=== PATIENT | female | born 1975 | race African-American/Black ===

== ENCOUNTER 2017-01-24 11:11 | Inpatient (IN) | payer OTHER ==
[2017-01-24 13:09] VITALS: BMI 24.2
--- NOTE | 2017-01-24 14:08 | HP ---
CIWA Score - CIWA Score Nausea/Vomitin Muscle Tremors: 3 Anxiety: 3 Agitation: 4-Moderately Restless Paroxysmal Sweats: 3 Orientation: 0-Oriented Tacttile Disturbances: 0-None Auditory Disturbances: 0-None Visual Disturbances: 0-None Headache: 1-Very Mild CIWA-Ar Total Score: 17 Admission ROS BHS - HPI Chief Complaint: I need to be here to get clean. Allergies/Adverse Reactions: Allergies Allergy/AdvReac Type Severity Reaction Status Date / Time No Known Allergies Allergy Verified 01/24/17 13:38 History of Present Illness: pt is a 41yr old female with a history of alcohol and cocaine dependence seeking detox for treatment Exam Limitations: No Limitations - Ebola screening Have you traveled outside of the country in the last 21 days: No Have you had contact with anyone from an Ebola affected area: No Have you been sick,other than usual withdrawal symptoms: No Do you have a fever: No - Review of Systems Constitutional: Chills, Changes in sleep EENT: reports: No Symptoms Reported Respiratory: reports: No Symptoms reported Cardiac: reports: No Symptoms Reported GI: reports: Nausea, Poor Appetite, Poor Fluid Intake, Vomiting : reports: No Symptoms Reported Musculoskeletal: reports: Joint Pain Integumentary: reports: Flushing, Sweating Neuro: reports: Headache, Tingling, Tremors Endocrine: reports: Excessive Sweating, Flushing, Intolerance to Cold, Intolerance to Heat Hematology: reports: No Symptoms Reported Psychiatric: reports: Judgement Intact, Orientated x3, Agitated, Anxious Patient History - Patient Medical History Hx Anemia: No Hx Asthma: Yes Hx Chronic Obstructive Pulmonary Disease (COPD): No Hx Cancer: No Hx Cardiac Disorders: No Hx Congestive Heart Failure: No Hx Hypertension: No Hx Hypercholesterolemia: No Hx Pacemaker: No HX Cerebrovascular Accident: No Hx Seizures: No Hx Diabetes: No Hx Gastrointestinal Disorders: No Hx Liver Disease: No Hx Genitourinary Disorders: No Hx Sexually Transmitted Disorders: No Hx Renal Disease (ESRD): No Hx Thyroid Disease: No Hx Human Immunodeficiency Virus (HIV): No (negative) Hx Hepatitis C: No Hx Depression: Yes Hx Suicide Attempt: No Hx Bipolar Disorder: Yes Hx Schizophrenia: No - Patient Surgical History Past Surgical History: Yes Hx Neurologic Surgery: No Hx Cataract Extraction: No Hx Cardiac Surgery: No Hx Lung Surgery: No Hx Breast Surgery: No Hx Breast Biopsy: No Hx Abdominal Surgery: No Hx Appendectomy: No Hx Cholecystectomy: No Hx Genitourinary Surgery: No Hx Section: Yes Hx Orthopedic Surgery: Yes (fx, foot) Anesthesia Reaction: No - PPD History Previous Implant?: Yes Documented Results: Negative w/o proof Implanted On Prior [facility] Admission?: No PPD to be Administered?: Yes - Reproductive History Last Menstrual Period: 01/24/17 Patient : No - Smoking Cessation Smoking history: Current every day smoker Have you smoked in the past 12 months: Yes Aproximately how many cigarettes per day: 4 Hx Chewing Tobacco Use: No Initiated information on smoking cessation: Yes 'Breaking Loose' booklet given: 01/24/17 - Substance & Tx. History Hx Alcohol Use: Yes Hx Substance Use: Yes Substance Use Type: Alcohol, Cocaine Hx Substance Use Treatment: Yes - Substances Abused Cocaine Route: Inhalation Frequency: Daily Amount used: $100 Age of first use: 38 Date of Last Use: 01/24/17 Alcohol-beer Route: Oral Frequency: Daily Amount used: 1-6 pk. Age of first use: 13 Date of Last Use: 01/24/17 Family Disease History - Family Disease History Family History: Denies Admission Physical Exam S - Vital Signs Vital Signs: Vital Signs - 24 hr 01/24/17 13:05 Temperature 97.4 F L Pulse Rate 76 Respiratory 18 Rate Blood Pressure 119/68 - Physical General Appearance: Yes: Appropriately Dressed, Tremorous, Irritable, Sweating, Anxious HEENTM: Yes: Normal Voice Respiratory: Yes: Lungs Clear, Normal Breath Sounds, No Respiratory Distress Neck: Yes: No masses,lesions,Nodules Breast: Yes: Within Normal Limits Cardiology: Yes: Regular Rhythm, Regular Rate, S1, S2 Abdominal: Yes: Normal Bowel Sounds, Non Tender, Soft Genitourinary: Yes: Within Normal Limits Back: Yes: Normal Inspection Musculoskeletal: Yes: full range of Motion Extremities: Yes: Normal Capillary Refill, Normal Inspection, Tremors Neurological: Yes: Fully Oriented, Alert, Normal Response Integumentary: Yes: Normal Color Lymphatic: Yes: Within Normal Limits - Diagnostic (1) Alcohol dependence with uncomplicated withdrawal Current Visit: Yes Status: Chronic (2) Cocaine dependence, uncomplicated Current Visit: Yes Status: Chronic (3) Nicotine dependence Current Visit: Yes Status: Chronic Qualifiers: Nicotine product type: cigarettes Substance use status: uncomplicated Qualified Code(s): F17.210 - Nicotine dependence, cigarettes, uncomplicated (4) Asthma Current Visit: Yes Status: Acute Cleared for Admission [facility] - Detox or Rehab [facility] Level of Care: Medically Managed Detox Regimen/Protocol: Librium S Breath Alcohol Content Breath Alcohol Content: 0 Urine Pregancy Test - Result Urine Test Results: Negative- NO Line Present Urine Drug Screen - Results Drug Screen Negative: No Urine Drug Screen Results: JOY-Cocaine
[2017-01-24] MEDS ORDERED: NICOTINE POLACRILEX 4 MG GUM BC PRN (14:10)
[2017-01-24] MEDS ORDERED: guaiFENesin/D-METHORPHAN HB 10 ML UNIT-DOSE CUPS PO PRN (14:10)
[2017-01-24] MEDS ORDERED: P-EPHED 60MG/TRIPROLIDI 2.5MG TABLET PO PRN (14:10)
[2017-01-24] MEDS ORDERED: diphenhydrAMINE HCL 50 MG CAPSULE PO PRN (14:10)
[2017-01-24] MEDS ORDERED: MAG HYDROX/AL HYDROX/SIMETH 30 ML UNIT-DOSE CUP PO PRN (14:10)
[2017-01-24] MEDS ORDERED: chlordiazePOXIDE HCL 25 MG CAPSULE PO PRN (14:10)
[2017-01-24] MEDS ORDERED: MENTHOL/PHENOL 1 EACH UD MM PRN (14:10)
[2017-01-24] MEDS ORDERED: ACETAMINOPHEN 325 MG TABLET (FP) PO PRN (14:10)
[2017-01-24] MEDS ORDERED: MAGNESIUM CITRATE 300 ML BOTTLE PO PRN (14:10)
[2017-01-24] MEDS ORDERED: MAGNESIUM HYDROX 2400MG/30ML ORAL SUSPENSION 30 ML CUP PO PRN (14:10)
[2017-01-24] MEDS ORDERED: LOPERAMIDE HCL 2 MG CAPSULE PO PRN (14:10)
[2017-01-24] MEDS ORDERED: hydrOXYzine PAMOATE 50 MG CAPSULE (FP) PO PRN (14:10)
[2017-01-24] MEDS ORDERED: ALBUTEROL SO4 6.7 GM HFA INHALER IH PRN (14:12)
[2017-01-24] MEDS ORDERED: chlordiazePOXIDE HCL 25 MG CAPSULE PO ONE (15:40)
[2017-01-24] MEDS: IBUPROFEN 400 MG TABLET (FP) PO PRN (17:52)
[2017-01-24] MEDS: chlordiazePOXIDE HCL 25 MG CAPSULE PO SCH ×2 (17:53→22:11)
[2017-01-24 18:35] LABS: URINE APPEARANCE CLEAR; URINE BILIRUBIN NEGATIVE (NEGATIVE); URINE COLOR LTYELLOW; URINE GLUCOSE (UA) NEGATIVE (NEGATIVE); URINE KETONE NEGATIVE (NEGATIVE); URINE LEUK ESTERASE NEGATIVE (NEGATIVE); URINE NITRITE NEGATIVE (NEGATIVE); URINE PROTEIN NEGATIVE (NEGATIVE); URINE UROBILINOGEN NEGATIVE E.U./dl (0.2-1.0)
[2017-01-24 18:39] LABS: URINE BLOOD 1+ (NEGATIVE)
[2017-01-24 18:41] LABS: URINE BACTERIA RARE /hpf (NONE SEEN); URINE MUCUS RARE; URINE RBC <1 /hpf (0-3); URINE WBC 6 /hpf (3-5)
[2017-01-24] MEDS: THIAMINE HCL 100 MG TABLET (FP) PO SCH (22:11)
[2017-01-25] MEDS: chlordiazePOXIDE HCL 25 MG CAPSULE PO SCH ×4 (06:09→22:32)
--- NOTE | 2017-01-25 08:32 | CONSULT ---
[facility] Psychiatric Consult - Data Date of interview: 01/25/17 Admission source: [facility] Identifying data: This is 41 years old female with no psychiatric hospitalization history intoxicated with: :Alcohol, Cocaine and Nicotine Substance Abuse History: - Smoking Cessation. Smoking history: Current every day smoker. Have you smoked in the past 12 months: Yes. Aproximately how many cigarettes per day: 4. Hx Chewing Tobacco Use: No. Initiated information on smoking cessation: Yes. 'Breaking Loose' booklet given: 01/24/17. - Substance & Tx. History. Hx Alcohol Use: Yes. Hx Substance Use: Yes. Substance Use Type : Alcohol, Cocaine. Hx Substance Use Treatment: Yes. - Substances Abused. Cocaine. Route: Inhalation. Frequency: Daily. Amount used: $100. Age of first use: 38. Date of Last Use: 01/24/17. Alcohol-beer. Route: Oral. Frequency: Daily. Amount used: 1-6 pk. Age of first use: 13. Date of Last Use : 01/24/17 Medical History: Asthma Psychiatric History: Patient reprots history of anxiety and depression, ionsomnia, reports taking prior to admission: Seroquel 200mg po. Abilify 10mg poqd. Vistaril 50mg po qhs Physical/Sexual Abuse/Trauma History: Denies Additional Comment: Seroquel 200mg po. Abilify 10mg poqd. Vistaril 50mg po qhs Mental Status Exam - Mental Status Exam Alert and Oriented to: Person Cognitive Function: Fair Patient Appearance: Unkempt Mood: Sad Affect: Flat Patient Behavior: Sedated Speech Pattern: Delayed Voice Loudness: Mildly Soft/Quiet Thought Process: Circumstantial Thought Disorder: Being Controlled Hallucinations: Denies Suicidal Ideation: Denies Homicidal Ideation: Denies Insight/Judgement: Fair Sleep: Difficulty falling asleep Appetite: Weight gain Muscle strength/Tone: Normal Gait/Station: Normal Additional Comments: Seroquel 200mg po. Abilify 10mg poqd. Vistaril 50mg po qhs Psychiatric Findings - Problem List ([place] 1, 2,3) (1) Alcohol dependence with uncomplicated withdrawal Current Visit: Yes Status: Chronic (2) Cocaine dependence, uncomplicated Current Visit: Yes Status: Chronic (3) Nicotine dependence Current Visit: Yes Status: Chronic Qualifiers: Nicotine product type: cigarettes Substance use status: uncomplicated Qualified Code(s): F17.210 - Nicotine dependence, cigarettes, uncomplicated (4) Drug-induced mood disorder Current Visit: Yes Status: Acute - Initial Treatment Plan Initial Treatment Plan: Seroquel 200mg po. Abilify 10mg poqd. Vistaril 50mg po qhs
[2017-01-25 10:01] LABS: ALBUMIN 3.5 g/dl (3.4-5.0); ANION GAP 4 (8-16); CALCIUM 9.1 mg/dL (8.5-10.1); CO2 28 mmol/L (21-32); CREATININE 0.8 mg/dL (0.55-1.02); GLUCOSE,RANDOM 88 mg/dL (74-106); SGOT/AST 24 U/L (15-37); SGPT/ALT 48 U/L (12-78)
[2017-01-25 10:02] LABS: MCH 32.2 pg (25.7-33.7); MCHC 33.3 g/dl (32.0-36.0); MEAN CELL VOLUME 96.8 fl (80-96); MEAN PLT VOLUME 8.8 fl (7.5-11.1); PLATELET COUNT 299 K/MM3 (134-434); RDW 13.4 % (11.6-15.6); WHITE BLOOD COUNT 7.8 K/mm3 (4.0-10.0)
[2017-01-25 10:03] LABS: ALK PHOS 105 U/L (45-117); BILIRUBIN,TOTAL 0.3 mg/dL (0.2-1.0); TOT PROT 6.9 g/dl (6.4-8.2)
[2017-01-25 10:27] LABS: HIV 1 & 2 AB NEGATIVE; HIV 1 AGp24 NEGATIVE
--- NOTE | 2017-01-25 10:54 | PN ---
[facility] CIWA - CIWA Score Nausea/Vomitin-No Nausea/No Vomiting Muscle Tremors: 3 Anxiety: 3 Agitation: 3 Paroxysmal Sweats: 3 Orientation: 0-Oriented Tacttile Disturbances: 0-None Auditory Disturbances: 0-None Visual Disturbances: 0-None Headache: 0-None Present CIWA-Ar Total Score: 12 S Progress Note (SOAP) Subjective: back pain sweats interrupted sleep agitation Objective: 01/25/17 10:53 Vital Signs Temperature 97.7 F 01/25/17 09:47 Pulse Rate 92 H 01/25/17 09:47 Respiratory Rate 20 01/25/17 09:47 Blood Pressure 139/99 01/25/17 09:47 O2 Sat by Pulse Oximetry (%) Laboratory Tests 01/24/17 01/24/17 01/24/17 06:00 14:15 17:45 WBC RBC Hgb Hct MCV MCHC RDW Plt Count MPV Sodium Potassium Chloride Carbon Dioxide Anion Gap BUN Creatinine Creat Clearance w eGFR Random Glucose Calcium Total Bilirubin AST ALT Alkaline Phosphatase Total Protein Albumin Urine Color Ltyellow Urine Appearance Clear Urine pH 6.0 Ur Specific [place] 1.027 Urine Protein Negative Urine Glucose (UA) Negative Urine Ketones Negative Urine Blood 1+ H Urine Nitrite Negative Urine Bilirubin Negative Urine Urobilinogen Negative Ur Leukocyte Esterase Negative Urine RBC <1 Urine WBC 6 Ur Epithelial Cells Rare Urine Bacteria Rare Urine Mucus Rare Hepatitis C Antibody 0.1 HIV 1&2 Antibody Screen Negative HIV P24 Antigen Negative 01/25/17 01/25/17 06:00 06:00 WBC 7.8 RBC 3.72 Hgb 12.0 Hct 36.0 MCV 96.8 H MCHC 33.3 RDW 13.4 Plt Count 299 MPV 8.8 Sodium 139 Potassium 3.9 Chloride 107 Carbon Dioxide 28 Anion Gap 4 L BUN 17 Creatinine 0.8 Creat Clearance w eGFR > 60 Random Glucose 88 Calcium 9.1 Total Bilirubin 0.3 AST 24 ALT 48 Alkaline Phosphatase 105 Total Protein 6.9 Albumin 3.5 Urine Color Urine Appearance Urine pH Ur Specific [place] Urine Protein Urine Glucose (UA) Urine Ketones Urine Blood Urine Nitrite Urine Bilirubin Urine Urobilinogen Ur Leukocyte Esterase Urine RBC Urine WBC Ur Epithelial Cells Urine Bacteria Urine Mucus Hepatitis C Antibody HIV 1&2 Antibody Screen HIV P24 Antigen awake/alert lying in bed no acute distress Assessment: 01/25/17 10:53 withdrawal sx Plan: continue detox increase fluids lidocaine patch motrin/tylenol prn
[2017-01-25] MEDS: ARIPiprazole 10 MG TABLET PO SCH (10:55)
[2017-01-25] MEDS: PRENATAL VITAMINS W/ FOLIC ACID TABLET (FP) PO SCH (10:55)
[2017-01-25] MEDS: NICOTINE 21 MG/24 HOURS TOPICAL PATCH TD SCH (12:00)
[2017-01-25] MEDS: LIDOCAINE 5% TOPICAL PATCH TP SCH (12:00)
--- NOTE | 2017-01-25 15:27 | EKG ---
Test Reason : Blood Pressure : / mmHG Vent. Rate : 073 BPM Atrial Rate : 073 BPM P-R Int : 192 ms QRS Dur : 074 ms QT Int : 376 ms P-R-T Axes : 031 036 053 degrees QTc Int : 414 ms NORMAL SINUS RHYTHM NORMAL ECG NO PREVIOUS ECGS AVAILABLE Confirmed by MERLENE JACOBS MD ([id number]) on 01/25/2017 3:26:44 PM Referred By: Juan Alberto Gamble Confirmed By:MERLENE JACOBS MD
[2017-01-25] MEDS: THIAMINE HCL 100 MG TABLET (FP) PO SCH (22:32)
[2017-01-25] MEDS: QUEtiapine FUMARATE 200 MG TABLET PO SCH (22:32)
[2017-01-25] MEDS: hydrOXYzine PAMOATE 50 MG CAPSULE (FP) PO SCH (22:32)
[2017-01-26] MEDS: chlordiazePOXIDE HCL 25 MG CAPSULE PO SCH ×2 (05:34→10:28)
--- NOTE | 2017-01-26 09:28 | PN ---
[facility] CIWA - CIWA Score Nausea/Vomitin Muscle Tremors: 3 Anxiety: 3 Agitation: 2 Paroxysmal Sweats: 1-Minimal Palms Moist Orientation: 0-Oriented Tacttile Disturbances: 1-Very Mild Itch/Numbness Auditory Disturbances: 1-Very Mild Visual Disturbances: 1-Very Mild Sensitivity Headache: 2-Mild CIWA-Ar Total Score: 17 BHS Progress Note (SOAP) Subjective: ALERT,IRRITABLE,ANXIOUS,INTERRUPTED SLEEP,TREMOR Objective: 01/26/17 09:26 Vital Signs Temperature 98.1 F 01/26/17 06:00 Pulse Rate 87 01/26/17 06:00 Respiratory Rate 18 01/26/17 06:00 Blood Pressure 136/94 01/26/17 06:00 O2 Sat by Pulse Oximetry (%) Laboratory Last Values WBC 7.8 K/mm3 (4.0-10.0) 01/25/17 06:00 RBC 3.72 M/mm3 (3.60-5.2) 01/25/17 06:00 Hgb 12.0 GM/dL (10.7-15.3) 01/25/17 06:00 Hct 36.0 % (32.4-45.2) 01/25/17 06:00 MCV 96.8 fl (80-96) H 01/25/17 06:00 MCHC 33.3 g/dl (32.0-36.0) 01/25/17 06:00 RDW 13.4 % (11.6-15.6) 01/25/17 06:00 Plt Count 299 K/MM3 (134-434) 01/25/17 06:00 MPV 8.8 fl (7.5-11.1) 01/25/17 06:00 Sodium 139 mmol/L (136-145) 01/25/17 06:00 Potassium 3.9 mmol/L (3.5-5.1) 01/25/17 06:00 Chloride 107 mmol/L (98-107) 01/25/17 06:00 Carbon Dioxide 28 mmol/L (21-32) 01/25/17 06:00 Anion Gap 4 (8-16) L 01/25/17 06:00 BUN 17 mg/dL (7-18) 01/25/17 06:00 Creatinine 0.8 mg/dL (0.55-1.02) 01/25/17 06:00 Creat Clearance w eGFR > 60 (>60) 01/25/17 06:00 Random Glucose 88 mg/dL (74-106) 01/25/17 06:00 Calcium 9.1 mg/dL (8.5-10.1) 01/25/17 06:00 Total Bilirubin 0.3 mg/dL (0.2-1.0) 01/25/17 06:00 AST 24 U/L (15-37) 01/25/17 06:00 ALT 48 U/L (12-78) 01/25/17 06:00 Alkaline Phosphatase 105 U/L (45-117) 01/25/17 06:00 Total Protein 6.9 g/dl (6.4-8.2) 01/25/17 06:00 Albumin 3.5 g/dl (3.4-5.0) 01/25/17 06:00 Urine Color Ltyellow 01/24/17 17:45 Urine Appearance Clear 01/24/17 17:45 Urine pH 6.0 (5.0-8.0) 01/24/17 17:45 Ur Specific [place] 1.027 (1.001-1.035) 01/24/17 17:45 Urine Protein Negative (NEGATIVE) 01/24/17 17:45 Urine Glucose (UA) Negative (NEGATIVE) 01/24/17 17:45 Urine Ketones Negative (NEGATIVE) 01/24/17 17:45 Urine Blood 1+ (NEGATIVE) H 01/24/17 17:45 Urine Nitrite Negative (NEGATIVE) 01/24/17 17:45 Urine Bilirubin Negative (NEGATIVE) 01/24/17 17:45 Urine Urobilinogen Negative E.U./dl (0.2-1.0) 01/24/17 17:45 Ur Leukocyte Esterase Negative (NEGATIVE) 01/24/17 17:45 Urine RBC <1 /hpf (0-3) 01/24/17 17:45 Urine WBC 6 /hpf (3-5) 01/24/17 17:45 Ur Epithelial Cells Rare /hpf (FEW) 01/24/17 17:45 Urine Bacteria Rare /hpf (NONE SEEN) 01/24/17 17:45 Urine Mucus Rare 01/24/17 17:45 RPR Titer Nonreactive (NONREACTIVE) 01/25/17 06:00 Hepatitis C Antibody 0.1 s/co ratio (0.0-0.9) 01/24/17 14:15 HIV 1&2 Antibody Screen Negative 01/24/17 06:00 HIV P24 Antigen Negative 01/24/17 06:00 Assessment: 01/26/17 09:27 WITHDRAWAL SYMPTOM Plan: CONTINUE DETOX
[2017-01-26] MEDS: ARIPiprazole 10 MG TABLET PO SCH (10:28)
[2017-01-26] MEDS: PRENATAL VITAMINS W/ FOLIC ACID TABLET (FP) PO SCH (10:28)
[2017-01-26] MEDS: NICOTINE 21 MG/24 HOURS TOPICAL PATCH TD SCH (10:29)
[2017-01-26] MEDS: IBUPROFEN 400 MG TABLET (FP) PO PRN (10:30)
[2017-01-26] MEDS: LIDOCAINE 5% TOPICAL PATCH TP SCH (10:35)
[2017-01-26] MEDS: METHYL SALICYLATE/MENTHOL OINT 30 GM TUBE TP SCH ×2 (12:35→22:24)
[2017-01-26] MEDS: chlordiazePOXIDE 5 MG CAPSULE PO SCH ×2 (17:47→22:26)
[2017-01-26] MEDS: hydrOXYzine PAMOATE 50 MG CAPSULE (FP) PO SCH (22:25)
[2017-01-26] MEDS: THIAMINE HCL 100 MG TABLET (FP) PO SCH (22:26)
[2017-01-26] MEDS: QUEtiapine FUMARATE 200 MG TABLET PO SCH (22:26)
[2017-01-27] MEDS: chlordiazePOXIDE 5 MG CAPSULE PO SCH ×2 (05:20→11:01)
[2017-01-27] MEDS: ARIPiprazole 10 MG TABLET PO SCH (11:01)
[2017-01-27] MEDS: PRENATAL VITAMINS W/ FOLIC ACID TABLET (FP) PO SCH (11:01)
[2017-01-27] MEDS: NICOTINE 21 MG/24 HOURS TOPICAL PATCH TD SCH (11:01)
--- NOTE | 2017-01-27 11:33 | PN ---
S Progress Note (SOAP) Subjective: ALERT,IRRITABLE,ANXIOUS,INTERRUPTED SLEEP Objective: 01/27/17 11:32 Vital Signs Temperature 97.9 F 01/27/17 10:32 Pulse Rate 110 H 01/27/17 10:32 Respiratory Rate 18 01/27/17 10:32 Blood Pressure 134/77 01/27/17 10:32 O2 Sat by Pulse Oximetry (%) Assessment: 01/27/17 11:32 WITHDRAWAL SYMPTOM Plan: CONTINUE DETOX
[2017-01-27] MEDS: LIDOCAINE 5% TOPICAL PATCH TP SCH (12:26)
[2017-01-27] MEDS: METHYL SALICYLATE/MENTHOL OINT 30 GM TUBE TP SCH ×2 (12:26→22:41)
[2017-01-27] MEDS: chlordiazePOXIDE HCL 10 MG CAPSULE PO SCH ×2 (17:40→23:35)
[2017-01-27] MEDS: QUEtiapine FUMARATE 200 MG TABLET PO SCH (22:41)
[2017-01-27] MEDS: THIAMINE HCL 100 MG TABLET (FP) PO SCH (22:41)
[2017-01-27] MEDS: hydrOXYzine PAMOATE 50 MG CAPSULE (FP) PO SCH (22:55)
[2017-01-28 07:24] VITALS: BP 108/62; PULSE 73; TEMP 96.9
[2017-01-28] MEDS: chlordiazePOXIDE HCL 10 MG CAPSULE PO SCH (07:58)
[2017-01-28] MEDS: ARIPiprazole 10 MG TABLET PO SCH (09:36)
[2017-01-28] MEDS: PRENATAL VITAMINS W/ FOLIC ACID TABLET (FP) PO SCH (09:36)
--- NOTE | 2017-01-28 09:46 | PN ---
S Progress Note (SOAP) Subjective: ALERT,NO COMPLAINT Objective: 01/28/17 09:45 Vital Signs Temperature 96.9 F L 01/28/17 07:23 Pulse Rate 73 01/28/17 07:23 Respiratory Rate 18 01/28/17 07:23 Blood Pressure 108/62 01/28/17 07:23 O2 Sat by Pulse Oximetry (%) Assessment: 01/28/17 09:45 DETOX COMPLETED,NO WITHDRAWAL SYMPTOM Plan: DISCHARGE TODAY,FOLLOW UP WITH AFTER CARE PROGRAM ARRANGEMENT
--- NOTE | 2017-01-28 09:48 | DS ---
[facility] Detox Discharge Summary Admission Date: 01/24/17 Discharge Date: 01/28/17 - History Present History: Alcohol Dependence, Cocaine Dependence Additional Comments: FOLLOW UP WITH [facility] ARRANGEMENT Pertinent Past History: ASTHMA NICOTINE DEPENDENCE - Physical Exam Results Vital Signs: Vital Signs Temperature 96.9 F L 01/28/17 07:23 Pulse Rate 73 01/28/17 07:23 Respiratory Rate 18 01/28/17 07:23 Blood Pressure 108/62 01/28/17 07:23 O2 Sat by Pulse Oximetry (%) Pertinent Admission Physical Exam Findings: WITHDRAWAL SYMPTOM - Treatment Hospital Course: Detox Protocol Followed, Detoxed Safely, Discharged Condition Good Patient has Accepted a Rehab Referral to: DECLINED - Medication Discharge Medications: Ambulatory Orders Albuterol Sulfate Inhaler - [Ventolin Hfa Inhaler -] 2 inh PO Q4H PRN 01/24/17 Aripiprazole [Abilify -] 10 mg PO DAILY 01/24/17 Hydroxyzine Pamoate [Vistaril -] 50 mg PO HS 01/24/17 Quetiapine Fumarate [Seroquel -] 200 mg PO HS 01/24/17 - AMA Did Patient Leave Against Medical Advice: No
== END 2017-01-28 10:11 | disposition home or self-care (01) | DRG 774 ==
LOC: YASAS 11:11 → Y6N 14:57
PROVIDERS: ADMIT Internal Medicine Addiction Medicine; ATTEND Internal Medicine Addiction Medicine
PROC: HZ2ZZZZ Detoxification Services for Substance Abuse Treatment (ICD-10-PCS; principal; 2017-01-24)
DX: F10.230 Alcohol dependence with withdrawal, uncomplicated (principal); F14.20 Cocaine dependence, uncomplicated; F17.210 Nicotine dependence, cigarettes, uncomplicated; F19.24 Other psychoactive substance dependence with psychoactive substance-induced mood disorder; J45.909 Unspecified asthma, uncomplicated
CPT/HCPCS: 36415; 80053; 81003; 81015; 85027; 86593; 87389; 93005; 93010